=== PATIENT | female | born 1985 | race African-American/Black ===

== ENCOUNTER 2019-08-05 09:53 | Emergency (ER) | payer BC, OTHER ==
[~2019-08-05] VITALS: Ht 160 cm; Wt 81.7 kg
[2019-08-05] MEDS ORDERED: FLONASE 0.05%50 MCG NARES (10:10)
[2019-08-05] MEDS ORDERED: SUPER THERAVIT1 EACH PO (10:11)
[2019-08-05] MEDS ORDERED: ALLEGRA-D 12 H1 EAC1 PO (10:11)
[2019-08-05] MEDS ORDERED: TESSALON PERLE100 MG PO (11:36)
[2019-08-05] MEDS ORDERED: NAPROSYN500 MG PO (11:36)
[2019-08-05 11:46] VITALS: BP 101/53
== END 2019-08-05 11:49 | disposition home or self-care (01) ==
LOC: ER 09:53
DX: J06.9 Acute upper respiratory infection, unspecified (principal)

== ENCOUNTER 2020-05-09 15:31 | Emergency (ER) | payer OTHER ==
[~2020-05-09] VITALS: Ht 160 cm; Wt 90.3 kg
[~2020-05-09 15:31] MED LIST: ALLEGRA-D 12 H1 EAC1 PO; FLONASE 0.05%50 MCG NARES; NAPROSYN500 MG PO; SUPER THERAVIT1 EACH PO; TESSALON PERLE100 MG PO
[2020-05-09] MEDS ORDERED: CELEXA 10 MG TA10 M1 PO (15:46)
[2020-05-09 17:04] VITALS: BP 98/54
[2020-05-09] MEDS ORDERED: CYCLOBENZAPRINE5 MG PO (17:18)
[2020-05-09] MEDS ORDERED: IBU400 MG PO (17:18)
== END 2020-05-09 17:40 | disposition home or self-care (01) ==
LOC: ER 15:31
DX: S13.4XXA Sprain of ligaments of cervical spine, initial encounter (principal); R51.9 Headache, unspecified; Z79.899 Other long term (current) drug therapy; Z88.0 Allergy status to penicillin; V49.9XXA Car occupant (driver) (passenger) injured in unspecified traffic accident, initial encounter; Y93.89 Activity, other specified; Y92.89 Other specified places as the place of occurrence of the external cause; Y99.8 Other external cause status